=== PATIENT | female | born 1965 | race Caucasian/White ===

== ENCOUNTER 2018-12-09 08:21 | Day surgery (SDC) | payer OTHER ==
[2018-12-08 13:09] VITALS: BMI 35.3
[2018-12-09 08:59] LABS: INR 0.94 (0.83-1.09); PROTHROMBIN TIME (PATIENT) 11.1 SEC (9.7-13.0)
[2018-12-09 09:05] LABS: HEMOGLOBIN 14.1 GM/dL (10.7-15.3); MCH 29.5 pg (25.7-33.7)
[2018-12-09 09:17] LABS: BASO % 0.9 % (0-2.0); EOS % 6.6 % (0-4.5); HEMATOCRIT 42.9 % (32.4-45.2); LYMPH % 37.1 % (8-40); MCHC 32.9 g/dl (32.0-36.0); MEAN CELL VOLUME 89.7 fl (80-96); MEAN PLT VOLUME 11.8 fl (7.5-11.1); MONO % 6.9 % (3.8-10.2); NEUT % 48.5 % (42.8-82.8); RBC 4.78 M/mm3 (3.60-5.2); RDW 13.1 % (11.6-15.6); WHITE BLOOD COUNT 7.3 K/mm3 (4.0-10.0)
[2018-12-09 09:18] LABS: PLATELET COUNT 236 K/MM3 (134-434)
[2018-12-09 13:35] VITALS: PULSE 69
[2018-12-09 14:27] VITALS: BP 105/57; TEMP 97.9
--- NOTE | 2018-12-16 11:51 | PATH ---
Surgical Pathology Report Patient Name: TRESSA LOPEZ [facility]. Rec. #: [id number] /Age/Gender: 1965 (Age: 53) / F Account: [id number] Location: RADIOLOGY INTER Taken: 12/09/2018 Received: 12/09/2018 Reported: 12/16/2018 Physicians: Marcos Caputo M.D. Specimen(s) Received LIVER BIOPSY Clinical History 53-year-old female with abnormal LFTs, positive ROBLES and anti-mitochondrial antibody Final Diagnosis LIVER, ULTRASOUND GUIDED CORE BIOPSY: CHRONIC NON-SUPPURATIVE GRANULOMATOUS CHOLANGITIS, CONSISTENT WITH PRIMARY BILIARY CHOLANGITIS. MINIMAL STEATOSIS (<5%). TRICHROME STAIN SHOWS PATCHY PERIPORTAL FIBROSIS (METAVIR F1). RETICULIN STAIN SHOWS AN INTACT SINUSOIDAL ARCHITECTURE. IRON STAIN IS NEGATIVE FOR SIDEROSIS. NEGATIVE FOR CHOLESTASIS OR MALIGNANCY. COMMENT: The biopsy shows portal tracts with mixed inflammation including lymphoid aggregates, eosinophils, plasma cells and poorly-formed granulomas with associated bile duct inflammation and injury. Florid duct lesions are present. The patient is noted to have a positive anti-mitochondrial antibody with a negative anti-smooth muscle antibody. Features of autoimmune hepatitis (i.e. extensive lymphoplasmacytic interface activity) are not present in this sample. The findings are consistent with primary biliary cholangitis (PBC), stage 1/4. Case sent for consultation to Dr. Rosaline Hale from [place], [place], the diagnosis above reflects her opinion ([id number]). Electronically Signed Deonna Lopez M.D. Gross Description Received in formalin labeled "liver tissue," are 7 medina, cylindrical portions of soft tissue ranging from 0.4-1.8 cm in length and averaging 0.1 cm diameter. The specimens are submitted in toto in one cassette. 12/09/201812/09/2018
== END 2018-12-09 14:30 | disposition home or self-care (01) ==
LOC: JRADIR 08:21
PROVIDERS: ATTEND Internal Medicine Gastroenterology
PROC: 0FB03ZX Excision of Liver, Percutaneous Approach, Diagnostic (ICD-10-PCS; principal; 2018-12-09)
DX: K74.3 Primary biliary cirrhosis (principal)
CPT/HCPCS: 36415; 76942-TC; 85025; 85610; 87899; 88307-TC

== ENCOUNTER 2023-10-16 16:00 | Emergency (ER) | payer OTHER ==
[2023-10-16 16:30] VITALS: BMI 27.3
[2023-10-16] MEDS ORDERED: ACETAMINOPHEN 500 MG TABLET (FP) ONE (16:52)
[2023-10-16] MEDS ORDERED: KETOROLAC TROMETHAMINE 30 MG/1 ML VIAL ONE (16:52)
[2023-10-16] MEDS: ACETAMINOPHEN 500 MG TABLET (FP) PO ONE (17:09)
[2023-10-16] MEDS: KETOROLAC TROMETHAMINE 30 MG/1 ML VIAL IM ONE (17:09)
[2023-10-16 20:09] VITALS: BP 120/65; PULSE 76; RESP 18; TEMP 98.2
== END 2023-10-16 20:12 | disposition home or self-care (01) ==
LOC: JER 16:00
PROC: 2W3MX1Z Immobilization of Left Lower Extremity using Splint (ICD-10-PCS; principal; 2023-10-16)
DX: S82.832A Other fracture of upper and lower end of left fibula, initial encounter for closed fracture (principal); W22.8XXA Striking against or struck by other objects, initial encounter
CPT/HCPCS: 73590-TC-LT-FY; 73610-TC-LT-FY; 73630-TC-LT; 99284-25

== ENCOUNTER 2025-01-28 11:19 | Emergency (ER) | payer OTHER ==
[2025-01-28 11:25] VITALS: BP 123/90; PULSE 68; RESP 20; TEMP 98.1; BMI 27.8
[2025-01-28] MEDS ORDERED: ACETAMINOPHEN 325 MG TABLET (FP) ONE (12:46)
[2025-01-28] MEDS: ACETAMINOPHEN 325 MG TABLET (FP) PO ONE (12:50)
[2025-01-28] MEDS ORDERED: BACITRACIN ZINC 15 GM TUBE TOPICAL OINTMENT ONE (14:49)
[2025-01-28] MEDS: BACITRACIN ZINC 15 GM TUBE TOPICAL OINTMENT TP ONE (14:52)
== END 2025-01-28 15:07 | disposition home or self-care (01) ==
LOC: JERFT 11:19
DX: S00.31XA Abrasion of nose, initial encounter (principal); S80.212A Abrasion, left knee, initial encounter; M17.12 Unilateral primary osteoarthritis, left knee; W18.09XA Striking against other object with subsequent fall, initial encounter; Y93.01 Activity, walking, marching and hiking; Y92.522 Railway station as the place of occurrence of the external cause
CPT/HCPCS: 73562-TC-LT-FY; 99283-25